=== PATIENT | male | born 1975 | race Two or more races ===

== ENCOUNTER 2025-07-07 15:50 | Emergency (ER) | payer MEDICAID, SELFPAY ==
[2025-07-07 15:57] VITALS: BP 148/95; PULSE 91; RESP 16; TEMP 36.6; O2SAT 95
--- NOTE | 2025-07-07 16:08 | XR_ITS ---
Examination: Abdomen sonogram, Limited Date and time of exam: July 07, 2025, 1612 hrs. Indications: Onset right upper abdominal pain beginning 3 weeks ago Technique: Real-time coats scale transabdominal sonographic images of the upper abdomen obtained. Findings: Contracted gallbladder no stones noted Common bile duct 0.5 cm Pancreatic head 3.7 cm Liver 18.3 cm fatty infiltration Normal hepatopedal portal venous flow Patent IVC Impression: Recommend repeating the gallbladder portion of the study with fasting
--- NOTE | 2025-07-07 16:08 | XR_ITS ---
Examination: CT abdomen and pelvis without contrast. Coronal 3-D reconstructions. Sagittal 2-D reconstructions. Date and time of exam:July 07, 2025, 1636 hrs. Indications: Generalized abdominal pain beginning 2 weeks ago CTDI: vol (mGy): 13.4 DLP: (mGycm): 914 Technique: Axial images of the abdomen have been obtained, 3 mm slice thickness Intravenous contrast material has not been administered. Low dose protocols were performed. One or more of the following dose reduction techniques were used; automated exposure control, adjustment of the mA and/or KV according to patient size, use of iterative reconstruction technique. Findings: Severe diffuse fatty infiltration throughout the liver, liver is irregular in contour Contracted gallbladder Spleen is not enlarged No pancreatic or adrenal mass Perinephric stranding No renal or ureteral calculi, no hydronephrosis Aorta normal size Normal appendix Small fat-containing umbilical hernia No bowel obstruction No diverticulitis Normal seminal vesicles No significant prostatomegaly Urinary bladder wall thickening anteriorly up to 8 mm Moderate osteopenia Impression: Severe diffuse fatty infiltration throughout the liver Suspect primary hepatocellular disease Perinephric stranding, consider urinary tract infection Mild urinary bladder wall thickening, consider cystitis Normal appendix No bowel obstruction
--- NOTE | 2025-07-07 16:09 | PD.EDRME ---
Rapid Medical Screening Exam E Arrival date/time: 07/07/25 15:50 49-year-old male presents to the emergency department for complaints of abdominal pain ongoing x 2 weeks Chief Complaint: Abdominal Pain Vital signs: Vital Signs Temperature 97.8 F 07/07/25 15:57 Pulse Rate 91 07/07/25 15:57 Respiratory Rate 16 07/07/25 15:57 Blood Pressure 148/95 H 07/07/25 15:57 Pulse Oximetry (%) 95 07/07/25 15:57 Oxygen Delivery Method Room Air 07/07/25 15:57
[2025-07-07 17:33] LABS: Basophils # (Auto) 0.1 Thou/mm3 (0.0-0.2); Basophils % (Auto) 1 % (0-2.5); Eosinophils # (Auto) 0.1 Thou/mm3 (0.0-0.5); Eosinophils % (Auto) 1 % (0-10); Hematocrit 49.0 % (41.0-53.0); Hemoglobin 16.9 g/dL (13.5-16.0); Immature Granulocytes Auto 0.02 Thou/mm3 (0.00-0.00); Lymphocytes # (Auto) 2.1 Thou/mm3 (1.0-4.8); Lymphocytes % (Auto) 29 % (10-50); Mean Corpuscular HGB Conc 34.5 g/dl (31.0-37.0); Mean Corpuscular Hemoglobin 32.7 pg (25.0-35.0); Mean Corpuscular Volume 95 fL (80-100); Monocytes # (Auto) 0.9 Thou/mm3 (0.0-0.8); Monocytes % (Auto) 13 % (0-12); Neutrophils # (Auto) 3.9 Thou/mm3 (1.8-7.7); Neutrophils % (Auto) 55 % (37-80); Nucleated Red Blood Cell # 0.00 Thou/mm3 (0.00-0.00); Nucleated Red Blood Cell % 0 /100 WBC (0); Platelet Count 157 Thou/mm3 (140-440); RDW Standard Deviation 42.5 fL (35.1-43.9); Red Blood Count 5.17 Miln/mm3 (4.50-5.90); White Blood Count 7.1 Thou/mm3 (3.8-10.6)
[2025-07-07 17:54] LABS: Alanine Aminotransferase 108 U/L (10-49); Albumin, Serum 3.9 gm/dL (3.5-5.0); Albumin/Globulin Ratio 1.3 (1.2-2.2); Alkaline Phosphatase 148 U/L (46-116); Anion Gap 12 (7-16); Aspartate Amino Transferase 71 U/L (0-34); BUN/Creatinine Ratio 5 Ratio (12-20); Bilirubin,Total 0.4 mg/dL (0.3-1.2); Blood Urea Nitrogen 5 mg/dL (9-23); Calcium 9.1 mg/dL (8.3-10.6); Calcium (Corrected) 9.2 mg/dL (8.5-10.1); Carbon Dioxide 23.7 mMol/L (20.0-31.0); Chloride 106 mMol/L (98-107); Creatinine (Component) 1.0 mg/dL (0.6-1.3); Globulin 3.0 gm/dL (2.3-3.5); Glucose 86 mg/dL (74-106); Lipase 69 U/L (12-53); Osmolality,Calculated 279 (275-295); Potassium 3.9 mMol/L (3.4-5.1); Sodium 142 mMol/L (136-145); Total Protein 6.9 gm/dL (5.7-8.2); Troponin I < 0.002 ng/mL (0.0-0.045); eGFR > 60 See Note
[2025-07-07 18:31] LABS: Collection Type, Urine Clean Catch; Squamous Epithelial Cell,Urine 0 /hpf (0-5)
[2025-07-07 18:48] LABS: Bilirubin,Urine Negative (Negative); Blood,Urine Negative (Negative); Clarity,Urine Clear (Clear/Hazy); Color,Urine Lt-Yellow (Lt Yel-Yel); Culture Indicated,Urine Not Indicated; Glucose, Urine Negative (Negative); Hyaline Casts,Urine < 1 /hpf (0-1); Ketones,Urine Negative (Negative); Leukocyte Esterase,Urine Negative (Negative); Nitrite,Urine Negative (Negative); PH,Urine 6.0 (5.0-7.0); Protein,Urine Trace (Neg - Trace); RBC,Urine 1 /hpf (0-3); Specific Gravity,Urine 1.019 (1.001-1.035); Urobilinogen,Urine Negative mg/dL (0.0-1.0); WBC,Urine 1 /hpf (0-5)
--- NOTE | 2025-07-07 21:17 | PD.EDABDPN ---
ED Abdominal Pain RME/HPI General Chief Complaint: Abdominal Pain Stated complaint: EPIGASTRIC PAIN Arrival date/time: 07/07/25 15:50 Limitations: no limitations RME / HPI RME / HPI narrative: 07/07/25 15:50 49-year-old male presents to the emergency department for complaints of abdominal pain ongoing x [address] Lu's Main ED Evaluation: 49yo male presents to the ED for a chief complaint of epigastric pain. Patient states he's had epigastric pain for awhile , but reports it has gotten progressively worse over the last 2-3 weeks. He has been taking ibuprofen at home with improvement. Pain does not worsen after he eats. Patient does drink alcohol daily. Denies any back pain, N/V, or any other associated symptoms. NKA. PCP: [facility] Related Data Allergies Allergy/AdvReac Type Severity Reaction Status Date / Time No Known Allergies Allergy Verified 07/07/25 15:52 Review of Systems Review of Systems Systems Reviewed: All systems reviewed, normal except as documented ED Exam General Limitations: Present no limitations General appearance: Present alert, in no apparent distress and obese Head Head exam: Present atraumatic Eye Eye exam: Present normal appearance, PERRL and EOMI ENT ENT exam: Present normal exam, normal oropharynx and mucous membranes moist Neck Neck exam: Present normal inspection, full ROM and trachea midline Chest Chest inspection: Present normal inspection and symmetric chest wall rise Respiratory Respiratory exam: Present normal lung sounds bilaterally Cardiovascular Cardiovascular exam: Present regular rate, normal rhythm and normal heart sounds Abdominal Exam Abdominal exam: Present soft; Absent distention or tenderness Extremities Exam Extremities exam: Present normal inspection and full ROM Back Exam Back exam: Present normal inspection and full ROM Neurological Exam Neurological exam: Present alert, oriented X3 and CN II-XII intact Psychiatric Psychiatric exam: Present normal affect and normal mood Skin Skin exam: Present warm, dry, intact and normal color Course Quality Measures none Orders Category Date Time Status CT abdomen pelvis wo con Stat Exams 07/07/25 16:08 Completed US gall bladder Stat Exams 07/07/25 16:08 Completed US gall bladder Stat Exams 07/07/25 18:32 Ordered CBC Stat Lab 07/07/25 16:20 Completed Comprehensive Metabolic Panel Stat Lab 07/07/25 16:20 Completed Lipase Stat Lab 07/07/25 16:20 Completed Troponin I Stat Lab 07/07/25 16:20 Completed UA, C/S IF [Urinalysis, C/S if Indicated] Stat Lab 07/07/25 18:12 Completed Vital Signs Vital signs: Vital Signs Temperature 97.8 F 07/07/25 15:57 Pulse Rate 91 07/07/25 15:57 Respiratory Rate 16 07/07/25 15:57 Blood Pressure 148/95 H 07/07/25 15:57 Pulse Oximetry (%) 95 07/07/25 15:57 Oxygen Delivery Method Room Air 07/07/25 15:57 Abdominal Pain MDM MDM Narrative MDM Narrative:: Scribe Attestation: 07/07/25 - Susanne Noonan am scribing for and in the presence of Dr. Lu. Patient data External records reviewed:: [facility] previous records (Per chart review, patient has no previous ED visits or admissions to this facility.) Clinical information provided by:: patient Social determinants that could affect healthcare access:: alcohol use Patient has the following chronic illnesses:: none How is presenting disease/condition affected by chronic disease/condition?: no chronic disease Evaluation data The following diagnostics were reviewed and interpreted by me:: lab results and radiology exam(s) Lab and/or radiology exams considered but not ordered:: none Interpretation Summary: CBC normal, AST 71, ALT 108, Alk Phos 148, Lipase 69. UA unremarkable. [facility] Report Signed Patient: TAMAR TOPETE Record#: [id number] Birthdate: 1975 Age/Sex: 49 / M Location: [facility] Attending Dr: Ordering Physician: José Luis (JANESSA)Ruddy NP Date of Service: 07/07/25 Procedure(s): CT abdomen pelvis wo con Accession Number(s): [id number] cc: José Luis MACKAY)Ruddy NP; Mahesh Dawson MD; Nemo Sherwood PA-C~ Examination: CT abdomen and pelvis without contrast. Coronal 3-D reconstructions. Sagittal 2-D reconstructions. Date and time of exam:July 07, 2025, 1636 hrs. Indications: Generalized abdominal pain beginning 2 weeks ago CTDI: vol (mGy): 13.4 DLP: (mGycm): 914 Technique: Axial images of the abdomen have been obtained, 3 mm slice thickness Intravenous contrast material has not been administered. Low dose protocols were performed. One or more of the following dose reduction techniques were used; automated exposure control, adjustment of the mA and/or KV according to patient size, use of iterative reconstruction technique. Findings: Severe diffuse fatty infiltration throughout the liver, liver is irregular in contour Contracted gallbladder Spleen is not enlarged No pancreatic or adrenal mass Perinephric stranding No renal or ureteral calculi, no hydronephrosis Aorta normal size Normal appendix Small fat-containing umbilical hernia No bowel obstruction No diverticulitis Normal seminal vesicles No significant prostatomegaly Urinary bladder wall thickening anteriorly up to 8 mm Moderate osteopenia Impression: Severe diffuse fatty infiltration throughout the liver Suspect primary hepatocellular disease Perinephric stranding, consider urinary tract infection Mild urinary bladder wall thickening, consider cystitis Normal appendix No bowel obstruction Dictated By: Mahesh Dawson MD Signed By: <Electronically signed by Mahesh Dawson MD in OV> 07/07/25 1732 [facility] Signed Patient: TAMAR TOPETE Record#: [id number] Birthdate: 1975 Age/Sex: 49 / M Location: [facility] Attending Dr: Ordering Physician: Ruddy Ordonez NP, NP Date of Service: 07/07/25 Procedure(s): US gall bladder Accession Number(s): [id number] cc: Ruddy Ordonez NP, NP; Mahesh Dawson MD; Nemo Sherwood PA-C~ Examination: Abdomen sonogram, Limited Date and time of exam: July 07, 2025, 1612 hrs. Indications: Onset right upper abdominal pain beginning 3 weeks ago Technique: Real-time coats scale transabdominal sonographic images of the upper abdomen obtained. Findings: Contracted gallbladder no stones noted Common bile duct 0.5 cm Pancreatic head 3.7 cm Liver 18.3 cm fatty infiltration Normal hepatopedal portal venous flow Patent IVC Impression: Recommend repeating the gallbladder portion of the study with fasting Dictated By: Mahesh Dawson MD Signed By: <Electronically signed by Mahesh Dawson MD in OV> 07/07/25 6326 Medications / Prescriptions Medications or Prescriptions considered but not ordered:: none Medication administrations:: none Consultations Consultation(s) initiated? (list below): No Diagnosis Differential diagnosis abdominal pain: pancreatitis and other (cholelithiasis, cholecystitis, gastritis) Most likely diagnosis given after review of the tests above:: see clinical impression below Admission Indicated Admission indicated?: not indicated Admission Request Was there a request for admission?: No Disposition Plan Disposition Plan: Discharge Discharge Attestation Discharge Attestation: The patient and all family members were given an opportunity to ask questions and understood the discharge instructions. Discharge instructions specifically effects, indications for sooner follow up or return to the emergency department, and the expected course of current diagnosis. Patient condition: Stable Discharge Plan Plan Patient Disposition: HOME (Self Care) Prescriptions/Referrals Referrals: Nemo Sherwood PA-C [Primary Care Provider, [facility]] - In 1 week Problem List Clinical Impression: Abdominal pain Patient/Caregiver Discharge Instructions Additional Instructions: Please follow-up with your primary care physician on Friday for walk-in so that we can get a follow-up for your liver function test and reevaluation. Return sooner if you have fever, worsening pain, any chest pain, vomiting you cannot tolerate liquids, or any other concerns. Print Language: Cymraes Stand Alone Forms: [employer] Award Info., Patient Portal Info Letter
== END 2025-07-07 21:21 | disposition home or self-care (01) ==
PROVIDERS: Nurse Practitioner Primary Care; Emergency Provider Emergency Medicine; PCP Physician Assistant
DX: R10.13 Epigastric pain (principal); K76.0 Fatty (change of) liver, not elsewhere classified; N32.89 Other specified disorders of bladder
CPT/HCPCS: 36415; 74176; 76705; 80053; 81001; 83690; 84484; 85025; 99284